=== PATIENT | female | born 1950 | race American Indian/Alaskan Native ===

== ENCOUNTER 2021-06-03 09:06 | Day surgery (SDC) | payer MEDICARE ==
[2021-06-03] MEDS ORDERED: fentaNYL 100 MCG/2 ML INJ ONE (10:55)
[2021-06-03] MEDS ORDERED: LIDOCAINE MPF (2%) 20 MG/1 ML VIAL 5 ML ONE (10:55)
[2021-06-03] MEDS ORDERED: propofoL 200 MG/20 ML VIAL IV ONE (10:55)
[2021-06-03] MEDS ORDERED: LACTATED RINGERS 1,000 ML ONE (11:00)
[2021-06-03] MEDS ORDERED: MIDAZOLAM 2 MG/2 ML INJ ONE (11:01)
[2021-06-03] MEDS ORDERED: ONDANSETRON 4 MG/2 ML INJ IV PRN (11:03)
[2021-06-03] MEDS ORDERED: HYDROmorphone 1 MG/1 ML INJ IV PRN ×2 (11:03)
--- NOTE | 2021-06-03 11:04 | Anesthesia Day of Surgery ---
Anesthesia Day of Surgery - Day of Surgery Patient Examined: Yes Patient H&P Reviewed: Yes Patient is NPO: Yes Beta Blockers: Yes
--- NOTE | 2021-06-03 11:06 | Anesthesia Consultation ---
Anesthesia Consult and Med Hx Date of service: 06/03/21 - Airway Anesthetic Teeth Evaluation: Chipped, Dentures, Partials ROM Head & Neck: Adequate Mental/Hyoid Distance: Adequate Mallampati Class: Class I Intubation Access Assessment: Good - Pre-Operative Health Status ASA Pre-Surgery Classification: ASA2 Proposed Anesthetic Plan: General - Pulmonary Hx Smoking: No Hx Asthma: Yes (INHALER PRN ( LAST USED 2 MONTHS AGO)) Hx Sleep Apnea: No (GIANCARLO PRE SCREEN LOW RISK) - Cardiovascular System Hx Hypertension: Yes (X 5 YRS) Hx Heart Attack/AMI: No (Pt reports negative ETT done last year) - Central Nervous System Hx Psychiatric Problems: No - Gastrointestinal Hx Gastroesophageal Reflux Disease: Yes (Dietary, occasional) - Endocrine Hx Renal Disease: Yes (Stones) Hx Liver Disease: Yes (FATTY LIVER-denies symptoms) Hx Non-Insulin Dependent Diabetes: Yes (FBS 100) - Hematic Hx Anemia: No - Other Systems Hx Cancer: Yes
[2021-06-03] MEDS ORDERED: LACTATED RINGERS 1,000 ML IV SCH (11:15)
[2021-06-03] MEDS ORDERED: ceFAZolin 1 GM VIAL ONE (11:44)
[2021-06-03] MEDS ORDERED: dexAMETHasone 20 MG/5 ML VIAL ONE (11:51)
[2021-06-03] MEDS ORDERED: KETOROLAC 30 MG/1 ML INJ ONE (11:51)
[2021-06-03] MEDS ORDERED: ONDANSETRON 4 MG/2 ML INJ ONE (11:51)
[2021-06-03] MEDS ORDERED: WATER FOR IRRIG STERILE 2000 ML IR ONE (12:09)
--- NOTE | 2021-06-03 12:16 | Short Stay Summary ---
Short Stay Documentation Date of service: 06/03/21 - History H&P: obtained from office - Allergies and Medications Current Medications: Allergies latex Allergy (Verified 06/02/21 15:50) Itching Sulfa (Sulfonamide Antibiotics) Allergy (Verified 06/02/21 15:51) Itching Home Medications Medication Instructions Recorded Confirmed Last Taken Type Albuterol Sulfate [Proventil Hfa] 2 puff IH PRN PRN 06/02/21 06/02/21 Unknown History Atorvastatin (Nf) [Lipitor (Nf)] 10 mg PO QHS 06/02/21 06/02/21 Unknown History Cholecalciferol (Vitamin D3) 50,000 unit PO QWEEK 06/02/21 06/02/21 Unknown History [Vitamin D3 50,000UNIT CAP] Losartan [Cozaar] 100 mg PO QDAY 06/02/21 06/02/21 Unknown History Metoprolol [Lopressor TAB] 75 mg PO DAILY 06/02/21 06/02/21 Unknown History Semaglutide [Ozempic] 1 mg SQ QWEEK 06/02/21 06/02/21 Unknown History amLODIPine [Norvasc] 10 mg PO DAILY 06/02/21 06/02/21 Unknown History metFORMIN [Glucophage] 500 mg PO BID 06/02/21 06/02/21 Unknown History Active Medications Hydromorphone HCl (Hydromorphone 1 Mg/1 Ml Inj) 0.25 mg IV Q10MIN PRN PRN Reason: Pain, Moderate (4-6) Stop: 06/04/21 11:02 Hydromorphone HCl (Hydromorphone 1 Mg/1 Ml Inj) 0.5 mg IV Q10MIN PRN PRN Reason: Pain , Severe (7-10) Stop: 06/04/21 11:02 Lactated Ringer's (Lactated Ringers) 1,000 mls @ 125 mls/hr IV DIRECT CODY Ondansetron HCl (Ondansetron 4 Mg/2 Ml Inj) 4 mg IV ONCE PRN PRN Reason: Nausea And Vomiting - Brief post op/procedure progress note Date of procedure: 06/03/21 Pre-op diagnosis: left ureteral stone Post-op diagnosis: same Procedure: cysto, left ureteroscopy basket stone , stent with external string Anesthesia: YOLANDA Surgeon: PATTI ROCA Condition: stable - Hospital course Hospital course: post on info on chart.pt has mary shah,alize lawrence - Disposition Condition at discharge: Stable Disposition: 01 HOME / SELF CARE / HOMELESS Short Stay Discharge Plan Follow up with: SANDRINE MONTES DE OCA MD [Primary Care Provider] - 7 Days
[2021-06-03] MEDS ORDERED: HYDROcodone/ACETAMINOPHEN 5-325 MG TAB PO PRN (13:30)
--- NOTE | 2021-06-03 14:19 | Post Anesthesia Evaluation ---
- Post Anesthesia Evaluation Patient Participated: Yes Airway Patent: Yes Stable Respiratory Function: Yes Nausea/Vomiting: No Temp > 96.8F: Yes Pain Manageable: Yes Adequeate Hydration: Yes Anesthesia Complications: No Block Receding Appropriately: Not Applicable Patient on Ventilator: No
[2021-06-03 15:02] VITALS: BP 138/69
--- NOTE | 2021-06-03 16:00 | Operative Report ---
DATE OF SURGERY: 06/03/2021 PREOPERATIVE DIAGNOSIS: Left ureteral stone. POSTOPERATIVE DIAGNOSIS: Left ureteral stone. PROCEDURES: Cystoscopy, bilateral retrograde pyelograms, left ureteroscopy, basket stone extraction with an external string (6-[place] x 24 cm). SURGEON: Tristan Leone MD ANESTHESIA: General. ESTIMATED BLOOD LOSS: Minimal. FLUIDS: Crystalloid. COMPLICATIONS: No complications. INDICATIONS: This patient is a 70-year-old female seen by another urologist with multiple stones last year. CT of abdomen and pelvis revealed a 9 mm ureteral stone with flank pain. Discussed options, she agreed to proceed with surgical intervention. DESCRIPTION OF PROCEDURE: The patient was taken to the operative suite, placed in a supine position. After adequate general anesthesia, placed in the dorsal lithotomy position, prepped and draped in a sterile fashion. Pancystourethroscopy was performed with a 22-[place] Storz cystoscope, no urethral abnormalities. Bladder was normal. Customer Support Advisor film, no obvious stones. Bilateral retrograde pyelograms were obtained with an 8-[place] Arthur catheter and 8 mL of contrast. 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 Two ureteral orifices could be appreciated on the right side. Left retrograde pyelogram was obtained. There were some filling defects in the distal ureter. Two 0.035 Glidewire were placed. Rigid ureteroscopy was performed. The patient had several fragments of stones in the distal ureter that were extracted with a 3-mm Patti basket. Ureteroscopy up to the renal pelvis, no other fragments could be appreciated. There was some edema mid ureter. She may have had an impacted stone in the past in this area. A 6-[place] 24 cm double-J stent with an external string was left indwelling. The patient already has her Cipro, Flomax, Ultram and [place]. TID: [id number] RECEIPT: [id number] FAY/MICHELLE/ETHEL
--- NOTE | 2021-06-03 16:54 | Fluoroscopy Report ---
7 fluoroscopic images submitted Indication: Intraoperative localization Impression: 7 images of the abdomen were submitted for documentation purposes with radiology involve ment. Bilateral retrograde pyelograms were performed utilizing 20 mL of Omnipaque 300. There is a co mpletely duplicated collecting system on the right. Please refer to the operative note for complete d etails. Fluoroscopic time: 18 seconds Signer Name: Lenin Head MD Signed: 06/03/2021 4:50 PM Workstation Name: [id number]
== END 2021-06-03 13:15 | disposition home or self-care (01) ==
LOC: OR 09:06
PROVIDERS: ATTEND Urology
DX: N20.1 Calculus of ureter (principal); E78.00 Pure hypercholesterolemia, unspecified; I10 Essential (primary) hypertension; J45.909 Unspecified asthma, uncomplicated; E11.9 Type 2 diabetes mellitus without complications; K21.9 Gastro-esophageal reflux disease without esophagitis; Z90.12 Acquired absence of left breast and nipple; Z91.040 Latex allergy status; Z88.2 Allergy status to sulfonamides; Z79.899 Other long term (current) drug therapy; Z79.84 Long term (current) use of oral hypoglycemic drugs; Z90.49 Acquired absence of other specified parts of digestive tract; Z85.3 Personal history of malignant neoplasm of breast; Z87.440 Personal history of urinary (tract) infections; Z85.89 Personal history of malignant neoplasm of other organs and systems; Z98.890 Other specified postprocedural states
CPT/HCPCS: 52332; 52352; 74420; 82962; C1758; C1769; C1889; J0690; J1100; J1885; J2250; J2405; J2704; J3010; J3490; J7120; Q9967; U0003